=== PATIENT | male | born 1980 | race African-American/Black ===

== ENCOUNTER 2016-12-22 12:51 | Emergency (ER) | payer SELFPAY ==
[2016-12-22 13:42] LABS: #Eosinphils 0.2 thou/uL (0.0-0.7); #Lymphocytes 1.8 thou/uL (1.20-3.40); #Monocytes 0.6 thou/uL (0.11-0.59); #Neutrophils 1.8 thou/uL (1.40-6.50); %Basophils 1.1 % (0.0-1.0); %Eosinophils 4.2 % (0.0-10.0); %Lymphocytes 41.2 % (21.0-51.0); %Monocytes 14.3 % (0.0-10.0); Hematocrit 39.7 % (42.0-52.0); Mean Platelet Volume 8.1 fL (7.4-10.4); Red Blood Cell (RBC) Count 3.99 mill/uL (4.70-6.10); White Blood Cell (WBC) Count 4.5 thou/uL (4.8-10.8)
[2016-12-22] MEDS ORDERED: Ibuprofen 800 MG TAB ONE (13:48)
[2016-12-22 14:02] LABS: ALT (SGPT) 33 U/L (8-55); AST (SGOT) 32 U/L (5-34); Alkaline Phosphatase 58 U/L (40-150); Anion Gap 13 mmol/L (10-20); BUN (Urea Nitrogen) 15 mg/dL (8.9-20.6); Bilirubin, Total 0.7 mg/dL (0.2-1.2); Calc. Creatinine Clearance 0 mL/min (70-130); Calcium 8.9 mg/dL (7.8-10.44); Carbon Dioxide 19 mmol/L (22-29); Chloride 107 mmol/L (98-107); Estimated GFR-MDRD 81; Globulin 5.7 g/dL (2.4-3.5); Protein, Total 9.1 g/dL (6.0-8.3)
--- NOTE | 2016-12-22 14:04 | RAD ---
FRONTAL RADIOGRAPH CHEST PORTABLE UPRIGHT: 12/22/2016 HISTORY: Cough. COMPARISON: 04/09/2012 FINDINGS: The lungs are clear. Heart and mediastinal contour are unremarkable. IMPRESSION: No acute findings. POS: [facility]
[2016-12-24 12:15] LABS: LOG10 HIV-1 RNA 1.602 (.)
== END 2016-12-22 16:17 | disposition home or self-care (01) ==
LOC: ERS 12:51
DX: J20.8 Acute bronchitis due to other specified organisms (principal); B20 Human immunodeficiency virus [HIV] disease; A15.9 Respiratory tuberculosis unspecified; F17.210 Nicotine dependence, cigarettes, uncomplicated
CPT/HCPCS: 36415; 71010; 80053; 83605; 85025; 87040; 87536; 93005; 94640

== ENCOUNTER 2016-12-24 09:47 | Emergency (ER) | payer SELFPAY ==
[2016-12-24] MEDS ORDERED: Ketorolac Tromethamine 30 MG/ML VIAL ONE (10:08)
== END 2016-12-24 10:16 | disposition home or self-care (01) ==
LOC: ERS 09:47
DX: J40 Bronchitis, not specified as acute or chronic (principal); I10 Essential (primary) hypertension; F17.210 Nicotine dependence, cigarettes, uncomplicated
CPT/HCPCS: 93005; 96374; J1885

== ENCOUNTER 2017-02-28 14:44 | Emergency (ER) | payer MEDICAID, SELFPAY ==
[2017-02-28] MEDS ORDERED: Ketorolac Tromethamine 30 MG/ML VIAL ONE (16:22)
[2017-02-28] MEDS ORDERED: Metoclopramide HCl 10 MG/2 ML VIAL ONE (16:22)
[2017-02-28] MEDS ORDERED: diphenhydrAMINE 50 MG/ML VIAL ONE (16:22)
== END 2017-02-28 18:40 | disposition home or self-care (01) ==
LOC: ERS 14:44
DX: R51 Headache (principal); B20 Human immunodeficiency virus [HIV] disease; I10 Essential (primary) hypertension; F17.210 Nicotine dependence, cigarettes, uncomplicated
CPT/HCPCS: 96361; 96365; 96375; 99406; J1200; J1885; J2765

== ENCOUNTER 2017-06-14 11:34 | Emergency (ER) | payer SELFPAY ==
[2017-06-14 12:08] LABS: Bilirubin Negative (Negative); Blood, Urine Trace (Negative); Clarity CLEAR (Clear); Glucose, Urine (Dipstick) Negative (Negative); Leukocyte Moderate (Negative); Nitrite Negative (Negative); Protein, Urine (Dipstick) Negative (Neg-Trace); Specific Gravity, Urine 1.021 (1.002-1.036)
[2017-06-14 12:09] LABS: Bacteria/HPF None Seen HPF (None Seen); Hyaline Casts/LPF 0-3 HYALINE CAST LPF (0-3 Hyaline); RBC/HPF 0-3 HPF (0-3); Squamous Epithelial 0-3 HPF (0-3); WBC/HPF 21-50 HPF (0-3)
[2017-06-14 12:23] LABS: #Basophils 0.1 thou/uL (0.0-0.2); #Eosinphils 0.3 thou/uL (0.0-0.7); #Lymphocytes 1.7 thou/uL (1.20-3.40); #Monocytes 0.7 thou/uL (0.11-0.59); %Lymphocytes 29.9 % (21.0-51.0); %Monocytes 11.9 % (0.0-10.0); %Neutrophils 52.3 % (42.0-75.0); Hemoglobin 13.3 g/dL (14.0-18.0); Mean Corpuscular HGB CONC 35.1 g/dL (32.0-36.0); Mean Corpuscular Hemoglobin 34.6 pg (27.0-31.0); Mean Corpuscular Volume 98.4 fl (80.0-94.0); Mean Platelet Volume 8.1 fL (7.4-10.4); Platelet Count 221 thou/uL (130-400); RBC Distribution Width 11.9 % (11.5-14.5); Red Blood Cell (RBC) Count 3.86 mill/uL (4.70-6.10); White Blood Cell (WBC) Count 5.7 thou/uL (4.8-10.8)
[2017-06-14 12:46] LABS: ALT (SGPT) 66 U/L (8-55); AST (SGOT) 45 U/L (5-34); Albumin 3.7 g/dL (3.5-5.0); Alkaline Phosphatase 58 U/L (40-150); Anion Gap 9 mmol/L (10-20); BUN (Urea Nitrogen) 24 mg/dL (8.9-20.6); Bilirubin, Total 0.5 mg/dL (0.2-1.2); Calc. Creatinine Clearance 0 mL/min (70-130); Calcium 8.8 mg/dL (7.8-10.44); Carbon Dioxide 25 mmol/L (22-29); Chloride 107 mmol/L (98-107); Estimated GFR-MDRD 67; Globulin 4.7 g/dL (2.4-3.5); Glucose 117 mg/dL (70-105); Protein, Total 8.4 g/dL (6.0-8.3); Sodium 137 mmol/L (136-145)
--- NOTE | 2017-06-14 14:05 | CT ---
CT ABDOMEN AND PELVIS WITHOUT CONTRAST: Date: 06/14/17 Multiple axial tomograms obtained through the abdomen and pelvis without IV enhancement. INDICATION: Left flank pain. HIV. FINDINGS: Lung bases clear. Liver, spleen, and pancreas appear unremarkable. Adrenals appear normal. Review of the kidneys reveal two small nonobstructing calculi in the upper collecting structures of t he left kidney. One in the upper pole measures approximately 3.0 mm and another in the lower pole ira sures approximately 4-5 mm. There is no hydronephrosis. Ureters are normal caliber. There is a tiny calcification along the course of the distal left ureter in the mid pelvis. This prob ably represents an adjacent phlebolith rather than a ureteral calcification given the lack of dilatat ion of the left ureter. Small bowel loops appear normal. Patient appears to be post appendectomy. Colon unremarkable. No pelon opathy. IMPRESSION: 1. There are two nonobstructing calculi in the upper collecting structures of the left kidney. 2. No evidence of obstructing calculus. A tiny calcification adjacent to the distal left ureter is f elt to lie outside the ureter. If there is persistent left flank pain suggesting a ureteral calculus, further evaluation with IVP could be performed for confirmation. 3. Otherwise no acute process. POS: [facility]
== END 2017-06-14 14:24 | disposition home or self-care (01) ==
LOC: ERS 11:34
DX: N39.0 Urinary tract infection, site not specified (principal); B20 Human immunodeficiency virus [HIV] disease; I10 Essential (primary) hypertension; F17.210 Nicotine dependence, cigarettes, uncomplicated; Z79.899 Other long term (current) drug therapy
CPT/HCPCS: 36415; 74176; 80053; 81003; 81015; 85025; 87086

== ENCOUNTER 2018-03-02 01:11 | Emergency (ER) | payer MEDICARE, SELFPAY ==
[2018-03-02] MEDS ORDERED: Ketorolac Tromethamine 60 MG/2 ML VIAL ONE (02:48)
[2018-03-02] MEDS ORDERED: Dexamethasone 10 MG/ML VIAL ONE (02:48)
== END 2018-03-02 03:08 | disposition home or self-care (01) ==
LOC: ERS 01:11
DX: J02.9 Acute pharyngitis, unspecified (principal); B20 Human immunodeficiency virus [HIV] disease; I10 Essential (primary) hypertension; F17.210 Nicotine dependence, cigarettes, uncomplicated
CPT/HCPCS: 96372; J1100; J1885

== ENCOUNTER 2018-03-14 08:52 | Emergency (ER) | payer MEDICARE ==
[2018-03-14 09:29] LABS: #Basophils 0.1 thou/uL (0.0-0.2); #Lymphocytes 1.2 thou/uL (1.20-3.40); #Monocytes 0.5 thou/uL (0.11-0.59); #Neutrophils 6.7 thou/uL (1.40-6.50); %Basophils 0.7 % (0.0-1.0); %Eosinophils 0.5 % (0.0-10.0); %Lymphocytes 14.2 % (21.0-51.0); %Monocytes 5.9 % (0.0-10.0); %Neutrophils 78.7 % (42.0-75.0); Hemoglobin 14.7 g/dL (14.0-18.0); Mean Corpuscular HGB CONC 34.1 g/dL (32.0-36.0); Mean Corpuscular Hemoglobin 33.9 pg (27.0-31.0); Mean Corpuscular Volume 99.5 fL (78.0-98.0); Mean Platelet Volume 8.6 fL (7.4-10.4); Platelet Count 249 thou/uL (130-400); RBC Distribution Width 12.4 % (11.5-14.5); Red Blood Cell (RBC) Count 4.33 mill/uL (4.70-6.10); White Blood Cell (WBC) Count 8.5 thou/uL (4.8-10.8)
[2018-03-14 09:49] LABS: ALT (SGPT) 24 U/L (8-55); AST (SGOT) 17 U/L (5-34); Albumin 3.9 g/dL (3.5-5.0); Alkaline Phosphatase 73 U/L (40-150); Anion Gap 11 mmol/L (10-20); BUN (Urea Nitrogen) 16 mg/dL (8.9-20.6); Calc. Creatinine Clearance 0 mL/min (70-130); Calcium 9.2 mg/dL (7.8-10.44); Carbon Dioxide 23 mmol/L (22-29); Chloride 104 mmol/L (98-107); Estimated GFR-MDRD 75; Glucose 108 mg/dL (70-105); Lipase 21 U/L (8-78); Potassium 4.2 mmol/L (3.5-5.1); Protein, Total 7.9 g/dL (6.0-8.3); Sodium 134 mmol/L (136-145)
[2018-03-14 11:07] LABS: Bilirubin Negative (Negative); Blood, Urine Negative (Negative); Clarity CLEAR (Clear); Glucose, Urine (Dipstick) Negative (Negative); Leukocyte Negative (Negative); Nitrite Negative (Negative); Protein, Urine (Dipstick) Negative (Neg-Trace); pH, Urine 6.5 (5.0-9.0)
[2018-03-14] MEDS ORDERED: Dexamethasone 10 MG/ML VIAL ONE (12:10)
== END 2018-03-14 12:28 | disposition home or self-care (01) ==
LOC: ERS 08:52
DX: R10.9 Unspecified abdominal pain (principal); R10.816 Epigastric abdominal tenderness; R10.811 Right upper quadrant abdominal tenderness; I10 Essential (primary) hypertension; Z87.19 Personal history of other diseases of the digestive system; F17.210 Nicotine dependence, cigarettes, uncomplicated; Z21 Asymptomatic human immunodeficiency virus [HIV] infection status; Z71.6 Tobacco abuse counseling; Z79.899 Other long term (current) drug therapy
CPT/HCPCS: 36415; 80053; 81003; 83690; 85025; 96361; 96372; 96374; 99406; J0500; J1100

== ENCOUNTER 2018-05-11 22:17 | Emergency (ER) | payer MEDICARE | END 2018-05-11 23:03 | disposition left against medical advice (07) | LOC: ERS 22:17 | DX: Z53.21 Procedure and treatment not carried out due to patient leaving prior to being seen by health care provider (principal) ==

== ENCOUNTER 2018-05-12 22:37 | Emergency (ER) | payer MEDICARE ==
[~2018-05-12 22:37] MED LIST: ISOVUE-370 76%-LOCM 1 ML ONE; Iopamidol 370 76% 50 ML VIAL FS ONE
[2018-05-12] MEDS ORDERED: Ondansetron PF 4 MG/2 ML Vial ONE (23:24)
[2018-05-12] MEDS ORDERED: Morphine 4 MG/ML VIAL ONE (23:24)
[2018-05-12 23:31] LABS: #Basophils 0.1 thou/uL (0.0-0.2); #Eosinphils 0.3 thou/uL (0.0-0.7); #Lymphocytes 2.2 thou/uL (1.20-3.40); #Monocytes 0.6 thou/uL (0.11-0.59); #Neutrophils 5.2 thou/uL (1.40-6.50); %Basophils 1.3 % (0.0-1.0); %Lymphocytes 26.3 % (21.0-51.0); %Monocytes 6.9 % (0.0-10.0); %Neutrophils 61.6 % (42.0-75.0); Hemoglobin 15.3 g/dL (14.0-18.0); Mean Corpuscular HGB CONC 34.2 g/dL (32.0-36.0); Mean Corpuscular Hemoglobin 34.1 pg (27.0-31.0); Mean Corpuscular Volume 99.7 fL (78.0-98.0); Mean Platelet Volume 8.2 fL (7.4-10.4); Platelet Count 250 thou/uL (130-400); RBC Distribution Width 12.3 % (11.5-14.5); Red Blood Cell (RBC) Count 4.47 mill/uL (4.70-6.10); White Blood Cell (WBC) Count 8.5 thou/uL (4.8-10.8)
[2018-05-12 23:53] LABS: ALT (SGPT) 21 U/L (8-55); AST (SGOT) 20 U/L (5-34); Alkaline Phosphatase 73 U/L (40-150); Anion Gap 11 mmol/L (10-20); BUN (Urea Nitrogen) 18 mg/dL (8.9-20.6); Bilirubin, Total 0.5 mg/dL (0.2-1.2); Calc. Creatinine Clearance 0 mL/min (70-130); Calcium 9.2 mg/dL (7.8-10.44); Carbon Dioxide 25 mmol/L (22-29); Chloride 104 mmol/L (98-107); Estimated GFR-MDRD 73; Globulin 3.6 g/dL (2.4-3.5); Glucose 100 mg/dL (70-105); Lipase 45 U/L (8-78); Potassium 3.7 mmol/L (3.5-5.1); Protein, Total 7.6 g/dL (6.0-8.3); Sodium 136 mmol/L (136-145)
[2018-05-13] MEDS ORDERED: Dicyclomine 20 MG TAB ONE (00:19)
--- NOTE | 2018-05-13 07:56 | CT ---
PRELIMINARY REPORT/[facility]/EMERGENCY AFTER HOURS PROCEDURE: EXAM: CT Abdomen and Pelvis With Contrast EXAM DATE/TIME: 05/13/2018 1:07 AM CLINICAL HISTORY: 37 years old, male; Pain; Abdominal pain; Acute; Patient HX: Known ulcerative colitis, diagnosed one year ago and has recently just established gi care at [facility] in early may. PT was triaged yesterday but lwobs. Returns to day for continued pain, lower abd, stating his uc flare is ki lling him and it is worse than it has been in a long time. TECHNIQUE: Imaging protocol: Axial computed tomography images of the abdomen and pelvis with intravenous contras t. Coronal reformatted images were created and reviewed. COMPARISON: No relevant prior studies available. FINDINGS: Lower thorax: No consolidations in the lung bases. ABDOMEN: Liver: No liver masses. Gallbladder and bile ducts: Normal appearance of the gallbladder. No ductal dilation. Pancreas: No pancreatic mass or ductal dilation. Spleen: No splenic masses. Adrenals: No adrenal nodules. Kidneys and ureters: There are 2 nonobstructing stones in the left kidney, the largest measures 4 mm. Symmetric perfusion of the kidneys. No enhancing mass or hydronephrosis. Stomach and bowel: Oral contrast is seen in the stomach and small bowel. No evidence of obstruction o r bowel wall thickening. Appendix: Surgical changes of appendectomy. PELVIS: Bladder: Normal bladder. Reproductive: Normal appearance of the prostate and seminal vesicles. ABDOMEN and PELVIS: Intraperitoneal space: No free fluid or free air. Bones/joints: No acute fracture. No dislocation. Soft tissues: No acute soft tissue findings. Vasculature: Normal vasculature. Lymph nodes: No lymphadenopathy. IMPRESSION: 1. No acute findings in the abdomen or pelvis. No bowel obstruction or inflammation. 2. Nonobstructing left renal stones. Thank you for allowing us to participate in the care of your patient. Dictated and Authenticated by: Chayo Goldstein MD 05/13/2018 2:10 AM Central Time ([place] & [place]) FINAL REPORT ABDOMEN CT WITH CONTRAST PELVIC CT WITH CONTRAST: Date: 05/12/18 HISTORY: Pain. COMPARISON: 06/14/17. FINDINGS: This report is in agreement with the preliminary report by Katrina. There are nonobstructing calculi in the left renal pelvis. Bilaterally, no obstructive uropathy. Appendix is surgically absent. IMPRESSION: No acute abnormality in the abdomen or pelvis. POS: [facility]
== END 2018-05-13 02:44 | disposition home or self-care (01) ==
LOC: ERS 22:37
DX: R10.9 Unspecified abdominal pain (principal); R10.30 Lower abdominal pain, unspecified; B20 Human immunodeficiency virus [HIV] disease; I10 Essential (primary) hypertension; F17.210 Nicotine dependence, cigarettes, uncomplicated
CPT/HCPCS: 36415; 74177; 80053; 83605; 83690; 85025; 96361; 96374; 96375; J2270; J2405; Q9966; Q9967

== ENCOUNTER 2018-11-21 12:29 | Emergency (ER) | payer MEDICARE | END 2018-11-21 13:41 | disposition home or self-care (01) | LOC: ERS 12:29 | DX: M54.12 Radiculopathy, cervical region (principal); B20 Human immunodeficiency virus [HIV] disease; I10 Essential (primary) hypertension; F17.210 Nicotine dependence, cigarettes, uncomplicated | CPT/HCPCS: 99283 ==

== ENCOUNTER 2019-05-06 10:31 | Emergency (ER) | payer MEDICARE ==
[2019-05-06] MEDS ORDERED: Metoclopramide HCl 10 MG TAB ONE (11:08)
[2019-05-06] MEDS ORDERED: Ketorolac Tromethamine 30 MG/ML VIAL ONE (11:08)
--- NOTE | 2019-05-06 11:41 | CT ---
CT BRAIN WITHOUT CONTRAST: HISTORY: Right-sided headache and neck pain, dizziness and weakness FINDINGS: No evidence of acute infarct, hemorrhage, midline shift or abnormal extra-axial fluid collections is seen. The ventricular size is appropriate and the basilar cisterns are patent. The bony calvarium is intact. The visualized paranasal sinuses and mastoid air cells are well aerated. IMPRESSION: No CT evidence of acute intracranial process.
== END 2019-05-06 13:20 | disposition home or self-care (01) ==
LOC: ERS 10:31
DX: R51 Headache (principal); I10 Essential (primary) hypertension; F17.210 Nicotine dependence, cigarettes, uncomplicated; Z79.899 Other long term (current) drug therapy
CPT/HCPCS: 70450; 96372; J1885